=== PATIENT | female | born 1995 | race Caucasian/White ===

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

== ENCOUNTER 2017-01-21 00:02 | Emergency (ER) | payer BC ==
[~2017-01-21] VITALS: Ht 157.5 cm; Wt 64.0 kg
[~2017-01-21 00:02] MED LIST changes: +ACET325T33 PO; +FAMO-96 PO; +IBUP400T22 PO
[2017-01-21 00:06] VITALS: Ht 157.5 cm; Wt 64.0 kg
--- NOTE | 2017-01-21 01:03 | ERD ---
ER Documentation Chief Complaint Date/Time DATE: 01/21/17 TIME: 01:01 Chief Complaint right hand pain, states punched something hard x 20 minutes ago HPI 21-year-old female presents here in emergency department for complaints of right hand pain after punching a glass tonight. Patient does not have any open wounds. Patient denies any foreign body on affected area. Patient described the pain as throbbing pain, 6/10 scale, is accompanied with swelling, worse upon movement of the right hand. Patient denies any numbness or tingling. Patient denies any fever or chills. Patient did not take any medications to help with pain. ROS All systems reviewed and are negative except as per history of present illness. Medications Home Meds Active Scripts Famotidine* (Pepcid*) 20 Mg Tablet, 20 MG PO DAILY, #30 TAB Prov:DONNIE DOMINGO PA-C 08/14/16 Acetaminophen* (Tylenol*) 325 Mg Tablet, 2 TAB PO Q6 Y for PAIN AND OR ELEVATED TEMP, #30 TAB Prov:DONNIE DOMINGO PA-C 08/14/16 Ibuprofen* (Ibuprofen*) 400 Mg Tablet, 400 MG PO Q6H Y for PAIN, #30 TAB Prov:DONNIE DOMINGO PA-C 08/14/16 Ibuprofen* (Motrin*) 800 Mg Tab, 800 MG PO Q6, #30 TAB Prov:CORINA STARK PA-C 09/22/15 Allergies Allergies: Coded Allergies: No Known Allergy (Unverified , 01/21/17) PMhx/Soc Medical and Surgical Hx: pt denies Medical Hx, pt denies Surgical Hx Hx Alcohol Use: No Hx Substance Use: No Hx Tobacco Use: No Smoking Status: Never smoker FmHx Family History: No coronary disease, No diabetes, No other Physical Exam Vitals Vital Signs Date Time Temp Pulse Resp B/P Pulse Ox O2 Delivery O2 Flow Rate FiO2 01/21/17 00:06 99.5 112 20 133/72 99 Physical Exam GENERAL: The patient is well developed and appropriate for usual state of health, in no apparent distress. CHEST: Clear to auscultation bilaterally. There are no rales, wheezes or rhonchi. HEART: Regular rate and rhythm. No murmurs, clicks, rubs or gallops. No S3 or S4. ABDOMEN: Soft, nontender and nondistended. Good bowel sounds. No rebound or guarding. No gross peritonitis. No gross organomegaly or masses. No Murcia sign or McBurney point tenderness. BACK: No midline or flank tenderness. EXTREMITIES: Tenderness on palpation on the right fourth and fifth metacarpal, with mild swelling in the ecchymosis noted. Able to do full range of motion of the other joints of the right hand except for the fourth and fifth metacarpal area. Equal pulses bilaterally. Full range of motion of other joints of the body. Grossly neurovascularly intact. NEURO: Alert and oriented. Cranial nerves 2-12 intact. Motor strength in all 4 extremities with 5/5 strength. Sensation grossly intact. Normal speech and gait. SKIN: There is no apparent rash or petechia. The skin is warm and dry. HEMATOLOGIC AND LYMPHATIC: There is no evidence of excessive bruising or lymphedema. No gross cervical, axillary, or inguinal lymphadenopathy. Results 24 hrs PROCEDURE: XR Hand. CLINICAL INDICATION: Trauma. Pain. TECHNIQUE: Three views of the right hand were obtained. COMPARISON: No prior studies are available for comparison. FINDINGS: No fracture is identified. Joint relationships are maintained. Bone mineralization is within normal limits. Soft tissues are unremarkable. IMPRESSION: No acute fracture. RPTAT: HMVK .Shine Clifton MD, MD Date Time Electronically viewed and signed by .Shine Clifton MD, MD on 01/21/2017 01:54 .K/ CC: MEL MAURER NP PROCEDURE: XR Wrist. CLINICAL INDICATION: Pain. TECHNIQUE: AP, lateral and oblique views of the right wrist were performed. COMPARISON: No prior studies are available for comparison. FINDINGS: No evidence of fracture, dislocation, or subluxation is seen. The bones appear well mineralized. The joint spaces are well preserved. The soft tissues appear intact. IMPRESSION: Unremarkable exam of the right wrist. RPTAT: HMVK .Shine Clifton MD, Date Time Electronically viewed and signed by .Shine Clifton MD, MD on 01/21/2017 01:53 .K/ CC: MEL MAURER NP After receiving patients xray report, a _Velcro wrist support was applied on the patients right wrist. After application of the splint, patient has intact sensation and circulation on distal area of the affected joint. Patient does not complain of numbness or tingling after application of the splint. Patient tolerated procedure well. Procedures/MDM Medical Decision Making: Patient's pain is most likely consistent with a right hand and wrist contusion or a sprain. There is no suspicion for neurovascular compromise. Patient has intact sensation and circulation of the affected extremity. There is low suspicion for septic arthritis. Patient does not have any fever. Radiology exams of the affected area does not show any fracture or dislocation. Disposition: Home. Patient is given prescription for ibuprofen for pain. Patient was advised to elevate the affected area and apply ice on affected area. Patient was advised that if symptoms are worse, numbness, tingling, high fever, unable to move joint, worsening symptoms, to return to emergency department immediately. Otherwise, patient is advised to follow up with the primary care doctor in 5-7 days for reevaluation of symptoms. Departure Diagnosis: Primary Impression: Wrist pain, right Additional Impression: Hand contusion Encounter type: initial encounter Laterality: right Qualified Code: S60.221A - Contusion of right hand, initial encounter Condition: Stable Patient Instructions: Contusion, Hand, Wrist Sprain Additional Instructions: Patient is given prescription for ibuprofen for pain. Patient was advised to elevate the affected area and apply ice on affected area. Patient was advised that if symptoms are worse, numbness, tingling, high fever, unable to move joint , worsening symptoms, to return to emergency department immediately. Otherwise, patient is advised to follow up with the primary care doctor in 5-7 days for reevaluation of symptoms. MEL MAURER NP Jan 21, 2017 01:03
--- NOTE | 2017-01-21 01:53 | RADRPT ---
PROCEDURE: XR Wrist. CLINICAL INDICATION: Pain. TECHNIQUE: AP, lateral and oblique views of the right wrist were performed. COMPARISON: No prior studies are available for comparison. FINDINGS: No evidence of fracture, dislocation, or subluxation is seen. The bones appear well mineralized. The joint spaces are well preserved. The soft tissues appear intact. IMPRESSION: Unremarkable exam of the right wrist. RPTAT: HMVK .Shine Clifton MD, MD Date Time Electronically viewed and signed by .Shine Clifton MD, MD on 01/21/2017 01:53 .K/
--- NOTE | 2017-01-21 01:54 | RADRPT ---
PROCEDURE: XR Hand. CLINICAL INDICATION: Trauma. Pain. TECHNIQUE: Three views of the right hand were obtained. COMPARISON: No prior studies are available for comparison. FINDINGS: No fracture is identified. Joint relationships are maintained. Bone mineralization is within shereen l limits. Soft tissues are unremarkable. IMPRESSION: No acute fracture. RPTAT: HMVK .Shine Clifton MD, MD Date Time Electronically viewed and signed by .Shine Clifton MD, on 01/21/2017 01:54 .K/
[2017-01-21] MEDS ORDERED: IBUP400T22 PO (02:16)
[2017-01-21 02:25] VITALS: BP 128/72; PULSE 87; RESP 18; TEMP 98.7
== END 2017-01-21 02:26 | disposition home or self-care (01) ==
LOC: FTE 00:02
DX: S60.221A Contusion of right hand, initial encounter (principal); W25.XXXA Contact with sharp glass, initial encounter; Y92.9 Unspecified place or not applicable
CPT/HCPCS: 29125; 73110; 73130; Z7502

== ENCOUNTER 2017-08-29 10:17 | Emergency (ER) | END 2017-08-29 14:47 | disposition home or self-care (01) ==